=== PATIENT | female | born 1945 | race Caucasian/White ===

== ENCOUNTER → 2017-01-20 | Outpatient (CLI) | payer MEDICARE ==
--- NOTE | 2017-01-20 15:53 | RAD ---
DATE: 01/20/2017 EXAM: DIGITAL SCREEN BILAT W/CAD HISTORY: Previous right breast cancer COMPARISON: 09/03/2015 This study was interpreted with the benefit of Computerized Aided Detection (CAD). FINDINGS: There are scattered fibroglandular densities in the breasts. The right breast is small postsurgical basis. There is an unchanged density with extensive coarse calcification in the in the upper outer quadrant apparently on a posttherapeutic basis. There are benign secretory type calcifications in the right breast. An 11 mm opacity projected just medial to the midline of the left breast on the cc view is now identified. It is less clearly seen on the oblique view but probably lies at the 9-10:00 location. No other new or enlarging breast densities are seen. IMPRESSION: 1. Stable right mammograms with extensive postsurgical change in the upper outer quadrant. 2. Probable developing nodule in the medial left breast as described above. Diagnostic mammography is suggested for further evaluation and if a suspicious density persists, left breast ultrasound will be indicated. BI-RADS CATEGORY: 0 INCOMPLETE: NEEDS ADDITIONAL IMAGING EVALUATION AND/OR PRIOR MAMMOGRAMS FOR COMPARISON. RECOMMENDED FOLLOW-UP: ADD ADDITIONAL IMAGING PQRS compliance statement: Patient information was entered into a reminder system with a target due date for the next mammogram. Mammography is a sensitive method for finding small breast cancers, but it does not detect them all and is not a substitute for careful clinical examination. A negative mammogram does not negate a clinically suspicious finding and should not result in delay in biopsying a clinically suspicious abnormality. "Our facility is accredited by the [employer] Mammography [employer]."
== END | disposition home or self-care (01) ==
LOC: MAMMO 15:10
PROVIDERS: ATTEND Family Medicine
DX: Z12.31 Encounter for screening mammogram for malignant neoplasm of breast (principal)
CPT/HCPCS: G0202; 77067

== ENCOUNTER → 2017-01-29 | Outpatient (CLI) | payer MEDICARE ==
--- NOTE | 2017-01-29 14:54 | RAD ---
DATE: 01/29/2017 EXAM: DIGITAL DIAGNOSTIC LT, BREAST LEFT HISTORY: Suspicious screening study COMPARISON: 01/20/2017 This study was interpreted with the benefit of Computerized Aided Detection (CAD). FINDINGS: Spot compression and straight medial lateral views of the left breast were obtained and correlated with screening images. The additional views confirm the presence of an 11 mm nodule in the left breast at approximately the 10:00 location. Some of its margins are smooth while others are somewhat ill-defined. No microcalcifications are seen in association with this nodule. Left breast ultrasound, 01/29/2017: A targeted ultrasound exam of the left breast was performed. At the 10:00 location there is a small oval-shaped nodule. It lies approximately 1 cm from the nipple. It measures 7 x 4 x 9 mm. Its margins are fairly smooth. It demonstrates heterogeneous internal echoes. No internal color flow is seen. It corresponds in location to the mammographic abnormality. IMPRESSION: New left breast nodule at the 10:00 location as described above. Ultrasound-guided biopsy is suggested for further evaluation. BI-RADS CATEGORY: 4 SUSPICIOUS ABNORMALITY- BIOPSY SHOULD BE CONSIDERED RECOMMENDED FOLLOW-UP: BIO BIOPSY RECOMMENDED Note: The findings were discussed with the patient at the time of the exam and she understands the recommendation for biopsy. PQRS compliance statement: Patient information was entered into a reminder system with a target due date for the next mammogram. Mammography is a sensitive method for finding small breast cancers, but it does not detect them all and is not a substitute for careful clinical examination. A negative mammogram does not negate a clinically suspicious finding and should not result in delay in biopsying a clinically suspicious abnormality. "Our facility is accredited by the [employer] Mammography [employer]."
== END | disposition home or self-care (01) ==
LOC: MAMMO 13:17
PROVIDERS: ATTEND Obstetrics & Gynecology
DX: R92.8 Other abnormal and inconclusive findings on diagnostic imaging of breast (principal)
CPT/HCPCS: 76641; G0206; 77065